=== PATIENT | male | born 1980 ===

== ENCOUNTER 2018-06-26 09:05 | Emergency (ER) | payer OTHER ==
[~2018-06-26] VITALS: Ht 167.6 cm; Wt 90.7 kg
[2018-06-26] MEDS ORDERED: OSEL75CA PO (11:12)
[2018-06-26] MEDS ORDERED: TUSSI PRES-B L120 M1 PO (11:12)
== END 2018-06-26 12:34 | disposition home or self-care (01) ==
LOC: ER 09:05
DX: B34.9 Viral infection, unspecified (principal)